=== PATIENT | male | born 1995 | race Caucasian/White ===

== ENCOUNTER 2018-06-11 15:28 | Emergency (ER) | payer SELFPAY ==
[2018-06-11 15:30] VITALS: BP 120/62; PULSE 83; RESP 17; TEMP 36.7; O2SAT 97; BMI 26.9
--- NOTE | 2018-06-11 15:58 | ED.RN ---
PT LEFT WITH BEING SEEN, ANGRY THAT SMALL CHILD WITH LACERATION TO HEAD SENT TO ROOM BEFORE HIM. ATTEMPTED TO EDUCATE ON TRIAGE PROCESS, PT STATED HE WAS HERE FOR WORK EXCUSE.
== END 2018-06-11 19:40 | disposition left against medical advice (07) ==
LOC: ED 19:30
PROVIDERS: Emergency Provider Emergency Medicine
DX: R69 Illness, unspecified (principal)

== ENCOUNTER 2021-10-05 10:18 | Emergency (ER) | payer MEDICAID, SELFPAY ==
[2021-10-05 10:18] VITALS: BP 160/96; PULSE 114; RESP 16; TEMP 36.3; O2SAT 95; BMI 31.6
--- NOTE | 2021-10-05 10:52 | ED.VIS.GI ---
HPI HPI - GI History of Present Illness Chief Complaint: Abd Pain Narrative Narrative: Patient who denies significant past medical history presents with abdominal cramping in his bilateral lower quadrants of his abdomen. He relates history that yesterday at heartburn. He has history of acid reflux in the family. That has resolved, and he states he woke up this morning and vomited twice without any blood in his emesis. Whenever he breathes then, he has cramping pain in his bilateral quadrants of his abdomen. He denies any dysuria or hematuria. No problems with bowel movements, no diarrhea. His last normal bowel movement was this morning. He denies any exacerbating or alleviating factors but states it feels more like a crampy pain in his abdomen. No fevers or chills. No other symptoms. PFSH PFSH Home Medications dicyclomine 20 mg PO TID PRN #20 tab 10/05/21 [Rx Last Taken Unknown] famotidine [Pepcid AC] 20 mg PO DAILY #14 tab 10/05/21 [Rx Last Taken Unknown] Allergy/AdvReac Type Severity Reaction Status Date / Time No Known Allergies Allergy Verified 10/05/21 10:20 Social History Smoking Status: Current every day smoker tobacco type: cigarettes ROS ROS ED ROS Narrative Constitutional: No fever, no chills. HEENT: No sore throat. No neck pain. No loss of vision. No rhinorrhea. Cardiovascular: No chest pain. No palpitations. No pedal edema. Respiratory: No cough, no shortness of breath. Abdominal: Bilateral lower quadrant abdominal cramping/abdominal pain. Positive nausea. Positive vomiting. Genitourinary: No dysuria. No hematuria. Musculoskeletal: No myalgias. No arthralgias. Neurologic: No headaches. No dizziness. No lightheadedness. Skin: No rash. No change in color. Psychiatric: No depression. No anxiety. EXAM Physical Exam Narrative Exam Narrative: Afebrile. Vital signs noted. HEENT: Normocephalic. Atraumatic. PERRL, EOMI. Neck soft and supple. No point tenderness or step off. Cardiovascular: Regular rate and rhythm. No murmurs, rubs, or gallops appreciated. Respiratory: No tachypnea. Lungs clear to auscultation bilaterally. Gastrointestinal: Abdomen soft, nontender, with normoactive bowel sounds. No rebound or guarding. No pain over McBurney's point. Neurological: Awake. Alert. Nonfocal, nonlateralizing. Skin: No rash. Normal color. No pallor. Musculoskeletal: No pedal edema. Full range of motion extremities. Const Vital Signs: 10/05/21 10:18 Temperature 97.3 F L Temperature Source Temporal Pulse Rate 114 H Respiratory Rate 16 Blood Pressure 160/96 H Blood Pressure Mean 117 Pulse Ox 95 Oxygen Delivery Method Room Air MDM MDM MDM Narrative Medical decision making narrative: I will obtain a CBC, CMP, and lipase. I do not feel he requires CT scanning, but I will obtain abdominal x-rays. He was given a bolus of normal saline and dicyclomine orally. He has normal white count 9.2, hemoglobin normal at 14.6. Platelet count normal 354. Electrolyte panel is grossly unremarkable except for chloride elevated at 110. LFTs are normal. Lipase slightly low at 65. Urinalysis shows no evidence of infection. Abdominal x-rays interpreted by myself showed nonspecific gas pattern but no evidence of obstruction. Upon repeat examination he feels improved after Bentyl. His abdomen remains soft. I feel he can be discharged safely home with follow-up. Return instructions to the emergency department were reviewed. He was given prescriptions for dicyclomine and for Pepcid. He was referred to a primary care provider. Disposition is discharged home in stable condition. Lab Data Attestation: I reviewed the patient's lab results. Labs: Laboratory Results - last 24 hr 10/05/21 10/05/21 10/05/21 11:05 11:05 11:30 WBC 9.2 RBC 4.68 Hgb 14.6 Hct 41.1 MCV 87.8 MCH 31.2 MCHC 35.5 RDW Std Deviation 42.3 RDW Coeff of Lisette 13.1 Plt Count 354 MPV 9.2 Immature Gran % (Auto) 0.500 Neut % (Auto) 57.1 Lymph % (Auto) 32.3 [place] % (Auto) 7.1 Eos % (Auto) 2.3 Baso % (Auto) 0.7 Absolute Neuts (auto) 5.2 Absolute Lymphs (auto) 2.96 Nucleated RBC % 0 Sodium 139 Potassium 4.3 Chloride 110 H Carbon Dioxide 26.0 Anion Gap 3 L BUN 11 Creatinine 0.84 Estim Creat Clear Calc 138.81 Est GFR (MDRD) Af Amer 141 Est GFR (MDRD) Non-Af 117 BUN/Creatinine Ratio 13.0 Glucose 95 Calcium 8.9 Total Bilirubin 0.50 AST 16 ALT 23 Alkaline Phosphatase 86 Total Protein 7.6 Albumin 3.7 Globulin 3.9 Albumin/Globulin Ratio 0.9 Lipase 65 L Urine Color Yellow Urine Clarity Clear Urine pH 8.0 Ur Specific [place] 1.015 Urine Protein Negative Urine Glucose (UA) Normal Urine Ketones Negative Urine Occult Blood Negative Urine Nitrite Negative Urine Bilirubin Negative Urine Urobilinogen Normal Ur Leukocyte Esterase Negative Urine RBC 0 SEEN Urine WBC 0 SEEN Ur Squamous Epith Cells 0 SEEN Urine Bacteria 0 SEEN Urine Mucus 0 SEEN Radiography Diagnostic Testing: Clinical Impression(s) from Imaging Studies Acute Abdomen Series 10/05/21 11:10 Discharge Plan Triage Chief Complaint: Abd Pain ED Provider: Andrew Granda Dx/Rx/DC Orders Clinical Impression: Heartburn, Abdominal cramping, Gastritis Instructions: ED Abdominal Pain Unkn Cause Male... Prescriptions: New famotidine [Pepcid AC] 20 mg tablet 20 mg PO DAILY Qty: 14 RF: 0 dicyclomine 20 mg tablet 20 mg PO TID PRN (Reason: abdominal pain) Qty: 20 RF: 0 Stand Alone Forms: ED Work / School Excuse Primary Care Provider: Care Physician,No Primary Referrals: Dalton Marquez DO [STAFF PHYSICIAN] - As soon as possible Care Physician,No Primary [Primary Care Provider] - Disposition Disposition: Home, Self Care Discharge Date/Time: 10/05/21 12:31
[2021-10-05] MEDS: Dicyclomine 10 MG Capsule 20 MG PO (11:07)
[2021-10-05] MEDS: 0.9% Normal Saline 1,000 ML 1000 ML IV (11:07)
--- NOTE | 2021-10-05 11:10 | RAD_ITS ---
History: Pain Acute abdominal series: Findings: AP supine and upright views of the abdomen demonstrate normal bowel gas pattern. No free air, organomegaly or pathologic calcification. Psoas muscle margins are well delineated. Osseous structures appear normal. Single frontal view of the chest shows the lungs to be clear. Heart is normal size. Mediastinum and hilar structures are normal. No pleural effusion. IMPRESSION: Normal acute abdominal series. at 1138 Reported and signed by: Alexandre Max MD Electronically Signed: Alexandre Max MD at 11:37 EDT , RAD/Acute Abdomen Inc Chest
[2021-10-05 11:12] LABS: Absolute Lymphocyte Count 2.96 X10^3/uL (0.83-4.51); Absolute Neutrophil Count 5.2 X10^3/uL (2.0-7.7); Basophil# 0.06 X10^3/uL; Basophil% 0.7 % (0-1); Eosinophil# 0.21 X10^3/uL; Eosinophils% 2.3 % (0-5); Hematocrit 41.1 % (40-54); Hemoglobin 14.6 g/dL (13.0-16.5); Lymphocyte # 2.96 X10^3/ul (0.83-4.51); Lymphocyte % 32.3 % (19-41); Mean Corp Hgb Conc 35.5 g/dL (32-36); Mean Corpuscular Hgb 31.2 pg (27.0-32.0); Mean Corpuscular Volume 87.8 fL (80-94); Mean Platelet Vol. 9.2 fl (6.2-12.0); Monocyte# 0.65 X10^3/uL; Monocyte% 7.1 % (0-10); NRBC Flagged by Analyzer 0 % (0-5); Neutrophil # 5.23 X10^3/uL (2.7-7.7); Neutrophil % 57.1 % (47-70); Platelet Count 354 K/mm3 (150-450); RBC Distribution Width CV 13.1 % (11.6-14.6); RBC Distribution Width SD 42.3 fl (35.1-43.9); Red Blood Count 4.68 M/mm3 (4.6-6.2); White Blood Count 9.2 K/mm3 (4.4-11.0)
[2021-10-05 11:28] LABS: ALB/GLOB Ratio 0.9 RATIO (0.9-2.4); AST(SGOT) 16 U/L (15-37); Alanine Aminotransfer ALT/SGPT 23 U/L (16-61); Albumin, Serum 3.7 g/dL (3.2-5.0); Alkaline Phosphatase 86 U/L (45-117); Anion Gap 3 (5-15); BUN 11 mg/dL (7-18); Calcium,Total 8.9 mg/dL (8.5-10.1); Chloride 110 mmol/L (98-107); Creatinine, Serum 0.84 mg/dL (0.70-1.30); EST Glomerular Filtration Rate 117 mL/min (>60); Est Glom Filt Rate - Afr Amer 141 mL/min (>60); Estimated Creatinine Clearance 138.81 ml/min; Globulin 3.9 g/dL (2.2-4.2); Glucose 95 mg/dL (74-106); Lipase 65 U/L (73-393); Potassium 4.3 mmol/L (3.5-5.1); Protein, Total 7.6 g/dL (6.4-8.2); Sodium Level 139 mmol/L (136-145)
[2021-10-05 11:35] LABS: Bacteria 0 SEEN /hpf (None Seen); Mucous, Urine 0 SEEN /hpf (<or=2+); Red Blood Cells-Urine 0 SEEN /hpf (0-5); Squamous Epithelial Cells - UA 0 SEEN /hpf (0-5); White Blood Cells 0 SEEN /hpf (0-5)
[2021-10-05 11:37] LABS: Color, Urine Yellow (Yellow); Glucose, Dipstick Normal (Normal); Ketone-Dipstick Negative (Negative); Leukocyte Esterase-Dipstick Negative /ul (Negative); Nitrite-Dipstick Negative (Negative); Occult Blood-Urine Negative /ul (Negative); Protein-Dipstick Negative (Negative); Specific Gravity, Urine 1.015 (1.002-1.030); Urine Bilirubin Dipstick Negative (Negative); Urine Clarity Clear (Clear); Urine Urobilinogen Normal (Normal)
[2021-10-05 12:30] VITALS: BP 142/90; PULSE 99; RESP 16; O2SAT 98
== END 2021-10-05 12:31 | disposition home or self-care (01) ==
PROVIDERS: Emergency Provider Emergency Medicine; Visit Provider Emergency Medicine
DX: K29.70 Gastritis, unspecified, without bleeding (principal); F17.210 Nicotine dependence, cigarettes, uncomplicated
CPT/HCPCS: 74022; 80053; 81001; 83690; 85025; 96360; 99284; J7030; A4216

== ENCOUNTER → 2022-04-11 | Outpatient (CLI) | payer MEDICAID, SELFPAY | END | disposition home or self-care (01) | LOC: LABSPEC 13:30 | PROVIDERS: PCP Nurse Practitioner Family; Referring Provider Nurse Practitioner Family; Visit Provider Nurse Practitioner Family | DX: Z20.822 Contact with and (suspected) exposure to COVID-19 (principal) | CPT/HCPCS: 87635; U0003; U0005 ==

== ENCOUNTER 2022-04-12 20:06 | Emergency (ER) | payer OTHER, MEDICAID, SELFPAY ==
[2022-04-12 20:09] VITALS: BP 137/84; PULSE 80; RESP 18; TEMP 36.4; O2SAT 99; BMI 28.9
--- NOTE | 2022-04-12 20:24 | EX.ED.UPPERE ---
HPI History of Present Illness Chief Complaint: Laceration Informant: patient Onset/Context/Timing Onset: Today Current Severity: Mild Maximum Severity: Mild Narrative Narrative: Patient presents with a laceration to the proximal phalanx of the left fourth finger. He cut it on some sheet metal at work today. He is right-hand dominant. He is unsure of his last tetanus update. [facility] Medical History GERD (gastroesophageal reflux disease) Headache, migraine Home Medications NK 04/12/22 [History Last Taken Unknown] Allergy/AdvReac Type Severity Reaction Status Date / Time No Known Allergies Allergy Verified 04/12/22 20:11 Family History Mother Anxiety Asthma Arthritis Depression Hypertension High cholesterol Thyroid disorder Sleep apnea Other Heart disease Surgical History H/O removal of cyst History of hand surgery Social History Smoking Status: Current every day smoker tobacco type: cigarettes alcohol intake: never substance use type: does not use what type of physical activity do you participate in: none ROS ROS ED Constitutional Constitutional ED: Denies chills or fever(s) Eyes Eyes: Denies change in vision ENT ENT ED: Denies rhinorrhea Cardiovascular Cardiovascular: Denies chest pain Respiratory/Chest Respiratory/Chest: Denies cough or dyspnea Gastrointestinal Gastrointestinal: Denies abdominal pain, nausea or vomiting Musculoskeletal Musculoskeletal: Reports extremity pain; Denies back pain Integumentary Reports other Details: Left fourth finger laceration ; Denies Abrasions or rash Neurologic Neurologic: Denies headache(s) or weakness Psychiatric Psychiatric: Denies anxiety or depression Allergic/Immunologic Allergic/Immunologic ED: Denies lip swelling or urticaria EXAM Physical Exam Const Vital Signs: 04/12/22 20:09 Temperature 97.6 F L Temperature Source Temporal Pulse Rate 80 Respiratory Rate 18 Blood Pressure 137/84 H Blood Pressure Mean 101 Pulse Ox 99 Oxygen Delivery Method Room Air Positive well nourished and well developed General Appearance ED: well developed HEENT Reports normocephalic and head/scalp atraumatic Eyes PERRL and EOMs intact bilaterally Neck supple Chest Wall inspection of chest normal and palpation of chest normal Resp normal respiratory effort and clear to auscultation bilaterally Cardio regular rate and regular rhythm GI normal to inspection, nondistended, normoactive bowel sounds Palpation: soft Extremity normal to inspection Extremity Narrative: 1 cm superficial laceration along the proximal phalanx of the left fourth finger. Full range of motion of the digit noted. Normal sensation and cap refill. Neuro oriented x3 and no sensory deficits noted Sensorium / Orientation: alert Motor Exam: strength 5/5 throughout Psych mental status grossly normal Skin no rashes or lesions noted MDM MDM MDM Narrative Medical decision making narrative: Left fourth finger laceration cleansed. Wound is quite superficial and does not gape with flexion and extension of his finger. Wound is sealed with Dermabond and dressing applied. Tetanus update is given. Patient will follow up with his [employer]. Discharge Plan Triage Chief Complaint: Laceration ED Provider: Makayla Clark Dx/Rx/DC Orders Clinical Impression: Finger laceration Instructions: ED Laceration, Hand: All Closures Prescriptions: No Action NK Stand Alone Forms: Work Status Form Primary Care Provider: Dalton Fregoso NP Referrals: [facility] [Group of Physicians] - 3-5 Days Dalton Fregoso NP, [employer] [Primary Care Provider] - Disposition Disposition: Home, Self Care
[2022-04-12] MEDS: Diphth,Pertuss(Acell),Tet Vac 0.5 ML Vial IM (20:47)
== END 2022-04-12 21:03 | disposition home or self-care (01) ==
LOC: ED 20:53
PROVIDERS: Emergency Provider Emergency Medicine; PCP Nurse Practitioner Family; Visit Provider Emergency Medicine
DX: S61.215A Laceration without foreign body of left ring finger without damage to nail, initial encounter (principal); F17.210 Nicotine dependence, cigarettes, uncomplicated; W26.8XXA Contact with other sharp object(s), not elsewhere classified, initial encounter; Y99.0 Civilian activity done for income or pay; Z23 Encounter for immunization
CPT/HCPCS: 12001; 90471; 90715; 99282

== ENCOUNTER → 2022-05-02 | Outpatient (CLI) | payer MEDICAID, SELFPAY ==
[2022-05-02 11:35] LABS: Bacteria 0 SEEN /hpf (None Seen); Mucous, Urine 0 SEEN /hpf (<or=2+); Red Blood Cells-Urine 0 SEEN /hpf (0-5); Squamous Epithelial Cells - UA 0 SEEN /hpf (0-5); White Blood Cells 0 SEEN /hpf (0-5)
[2022-05-02 12:54] LABS: Color, Urine Yellow (Yellow); Glucose, Dipstick Normal (Normal); Ketone-Dipstick Negative (Negative); Leukocyte Esterase-Dipstick Negative /ul (Negative); Nitrite-Dipstick Negative (Negative); Occult Blood-Urine Negative /ul (Negative); Protein-Dipstick Negative (Negative); Urine Bilirubin Dipstick Negative (Negative); Urine Clarity Clear (Clear); Urine Urobilinogen Normal (Normal)
[2022-05-02 12:57] LABS: Absolute Lymphocyte Count 4.42 X10^3/uL (0.83-4.51); Absolute Neutrophil Count 4.8 X10^3/uL (2.0-7.7); Basophil# 0.07 X10^3/uL; Basophil% 0.7 % (0-1); Eosinophil# 0.28 X10^3/uL; Eosinophils% 2.7 % (0-5); Hematocrit 44.1 % (40-54); Hemoglobin 15.5 g/dL (13.0-16.5); Lymphocyte # 4.42 X10^3/ul (0.83-4.51); Mean Corp Hgb Conc 35.1 g/dL (32-36); Mean Corpuscular Hgb 32.2 pg (27.0-32.0); Mean Corpuscular Volume 91.7 fL (80-94); Mean Platelet Vol. 9.6 fl (6.2-12.0); Monocyte# 0.71 X10^3/uL; Monocyte% 6.9 % (0-10); NRBC Flagged by Analyzer 0 % (0-5); Neutrophil # 4.76 X10^3/uL (2.7-7.7); Neutrophil % 46.4 % (47-70); Platelet Count 334 K/mm3 (150-450); RBC Distribution Width CV 12.8 % (11.6-14.6); RBC Distribution Width SD 43.6 fl (35.1-43.9); Red Blood Count 4.81 M/mm3 (4.6-6.2); White Blood Count 10.3 K/mm3 (4.4-11.0)
[2022-05-02 13:22] LABS: ALB/GLOB Ratio 1.1 RATIO (0.9-2.4); AST(SGOT) 17 U/L (15-37); Alanine Aminotransfer ALT/SGPT 32 U/L (16-61); Albumin, Serum 4.3 g/dL (3.2-5.0); Alkaline Phosphatase 102 U/L (45-117); Anion Gap 4 (5-15); BUN 18 mg/dL (7-18); BUN/Creat Ratio 21.2 RATIO (10-20); Calcium,Total 9.4 mg/dL (8.5-10.1); Chloride 105 mmol/L (98-107); Cholesterol 205 mg/dL (200); Creatinine, Serum 0.85 mg/dL (0.70-1.30); EST Glomerular Filtration Rate 116 mL/min (>60); Est Glom Filt Rate - Afr Amer 140 mL/min (>60); Glucose 83 mg/dL (74-106); High Density Lipoprotein 37 mg/dL; Potassium 4.5 mmol/L (3.5-5.1); Protein, Total 8.3 g/dL (6.4-8.2); Sodium Level 136 mmol/L (136-145); Thyroid Stim Hormone (TSH) 3.39 uIU/mL (0.358-3.74); Triglycerides 96 mg/dL; Very Low Density Lipoprotein 19 mg/dL (5-40)
[2022-05-02 13:49] LABS: HIV - WCH Non-Reactive (Nonreactive); Hepatitis B Surface Antigen Non-Reactive (Nonreactive); Hepatitis C Antibody Non-Reactive (Nonreactive)
[2022-05-02 15:19] LABS: Chlamydia Trachomatis by PCR Negative (Negative); Neisserai gonorrhoeae by PCR Negative (Negative); Probe Check PASS; Sample Adequacy Control PASS; Specimen Processing Control PASS
== END | disposition home or self-care (01) ==
LOC: BIMLAB 11:34
PROVIDERS: PCP Nurse Practitioner Family; Visit Provider Nurse Practitioner Family
DX: F19.10 Other psychoactive substance abuse, uncomplicated (principal); Z72.51 High risk heterosexual behavior
CPT/HCPCS: 36415; 80053; 80061; 81001; 84443; 85025; 86703; 86803; 87340; 87491; 87591

== ENCOUNTER 2023-05-29 13:38 | Emergency (ER) | payer SELFPAY ==
[2023-05-29 13:39] VITALS: BP 170/100; PULSE 81; RESP 20; TEMP 37.2; O2SAT 99; BMI 29.5
--- NOTE | 2023-05-29 13:54 | ED.VIS.DENTA ---
HPI History of Present Illness Chief Complaint: Dental Informant: patient Onset/Context/Timing Onset: Weeks (1-2) Context: Gradual Onset Timing: Continuous Quality: ache/throb Location: R mandib molar Current Severity: Severe Maximum Severity: Severe Worsened by: eating, drinking Associated Symptoms Assocated Symptom - Dental: Negative for fever, jaw swelling or face swelling Narrative Narrative: Patient with gradual worsening of right mandibular tooth ache that started a couple weeks ago, when it started crumbling and falling apart while eating. No fevers, chills, swelling but the pain is out of control and cannot find a dentist. [facility] Medical History GERD (gastroesophageal reflux disease) Headache, migraine High risk sexual behavior Polysubstance abuse Tinnitus of left ear Home Medications amoxicillin 500 mg tablet 500 mg PO TID #30 tabs 05/29/23 [Rx Last Taken Unknown] hydrocodone-acetaminophen 5-325mg 5mg-325mg 1 tab PO Q4H PRN PRN Pain 2 days #10 TABLETS 05/29/23 [Rx Last Taken Unknown] Allergy/AdvReac Type Severity Reaction Status Date / Time No Known Allergies Allergy Verified 05/02/22 11:03 Family History Mother Anxiety Asthma Arthritis Depression Hypertension High cholesterol Thyroid disorder Sleep apnea Other Heart disease Surgical History H/O removal of cyst History of hand surgery Social History Smoking Status: Current every day smoker tobacco type: cigarettes alcohol intake: never substance use type: does not use what type of physical activity do you participate in: none ROS ROS ED Constitutional Constitutional ED: Denies chills or fever(s) Eyes Eyes: Denies change in vision or double vision ENT ENT ED: Reports dental pain; Denies sinus pain or throat swelling Cardiovascular Cardiovascular: Denies chest pain or palpitations Respiratory/Chest Respiratory/Chest: Denies cough or dyspnea Integumentary Denies abscess or rash Neurologic Neurologic: Denies headache(s), paresthesias or weakness EXAM Physical Exam Const Vital Signs: 05/29/23 13:39 Temperature 99 F Temperature Source Temporal Pulse Rate 81 Respiratory Rate 20 H Blood Pressure 170/100 H Blood Pressure Mean 123 Pulse Ox 99 Oxygen Delivery Method Room Air Positive well nourished and well developed General Appearance ED: well developed and NAD HEENT HEENT Narrative: Large deficit right mandibular second molar that is severely decayed, there is no associated discharge, bleeding, or gingival abscess. No trismus. No tongue elevation. Buccal soft tissue mucosa normal. No signs of external swelling/abscess. No lymphadenopathy. Face and Sinus: sinuses nontender Throat: posterior oropharynx normal Eyes PERRL and EOMs intact bilaterally Neck no lymphadenopathy and supple Resp normal respiratory effort Neuro oriented x3 and CN's II-XII intact bilaterally Sensorium / Orientation: alert Gait (Neuro): normal gait Psych mental status grossly normal and thought process normal Skin no rashes or lesions noted and no wounds MDM MDM MDM Narrative Medical decision making narrative: Patient with a history of polysubstance abuse, denies using anything now, OARRS report reviewed and is negative for the past 2 years. Given her short course of [place] since [id number] medication not helping, and placed on amoxicillin given dental resource list. Discharge Plan Triage Chief Complaint: Dental ED Provider: Cristóbal Porter Dx/Rx/DC Orders Clinical Impression: Pain due to dental caries Instructions: ED Dental Cavity Prescriptions: New hydrocodone-acetaminophen [hydrocodone-acetaminophen] 5-325 mg tablet 1 tab PO Q4H PRN PRN (Reason: Pain) 2 Days Qty: 10 0RF amoxicillin 500 mg tablet 500 mg PO TID Qty: 30 0RF Primary Care Provider: Dalton Fregoso NP Referrals: Dalton Fregoso [employer], [employer] [Primary Care Provider] - Dentist,Your [STAFF PHYSICIAN] - As soon as possible (see attached resource list if needed) Disposition Disposition: Home, Self Care
[2023-05-29] MEDS: Ibuprofen 600 MG Tablet PO (14:14)
[2023-05-29] MEDS: HYDROcodone Bitartrate/Apap 5/325 Tablet PO (14:15)
[2023-05-29] MEDS: AMOXICILLIN 500 MG CAPSULE PO (14:15)
== END 2023-05-29 14:17 | disposition home or self-care (01) ==
LOC: ED 14:03
PROVIDERS: Emergency Provider Emergency Medicine; PCP Nurse Practitioner Family; Referring Provider Emergency Medicine; Visit Provider Emergency Medicine
DX: K02.9 Dental caries, unspecified (principal); F17.210 Nicotine dependence, cigarettes, uncomplicated
CPT/HCPCS: 99283

== ENCOUNTER 2023-06-29 18:04 | Emergency (ER) | payer MEDICAID, SELFPAY ==
[2023-06-29 18:05] VITALS: BP 146/99; PULSE 116; RESP 16; TEMP 36.6; O2SAT 100
--- NOTE | 2023-06-29 19:54 | ED.RN ---
Pt name called for room, not in department.
--- OUTSIDE RECORDS SUMMARY | 2023-06-29 20:10 | XMS RPT_ITS | CCD ---
Author Name Unknown Address [address] [place] [address] Organization [facility] Care Team Providers Care Application Project Leader Name Role Phone Unavailable Primary Care Provider ASTER Warren Referring Unavailable ASTER MATHUR Consulting Unavailable ADAM RICHARDSON DO Attending Unavailable ADAM RICHARDSON DO Primary Care Unavailable ADAM RICHARDSON DO Admitting Unavailable PROVIDER, UNKNOWN Consulting Unavailable Unavailable Primary Care Provider Venancio DE DIOS MD, DR HARRISON Attending YENIFER Warren Primary Care Unavailable Medications Completed/Discontinued Medications Medication Drug Class(es) Dates Sig (Normalized) Sig (Original) azithromycin 250 mg oral tablet (1 source) Macrolide Antimicrobial Start: 09-19-2022 take 1 tablet by mouth once daily azithromycin (ZITHROMAX) 250 mg tablet Take 250 mg by mouth once daily. 0 09/19/2022 Active Problems Problem Classification Problem Date Documented Da te Episodic/Chronic Inflammation; infection of eye (except that caused by tuberculosis or sexually transmitteddisease) (1 source) Hordeolum externum of lower eyelid of right eye; Translations: [Hordeolum externum right lower eyelid] Episodic Results Test Name Value Interpretation Reference Range Facil ity Vital Signs Date Time Vital Sign Value Performing Clinician Marleni simmons 10-03-2022 15:14-0400 Body temperature 98.2 [degF] Courtney Harris APRN.[employer] Work Phone: [facility] 10-03-2022 15:14-0400 Body weight 86.27 kg Courtney Harris HI LO DRIVER.[employer] Work Phone: [facility] 10-03-2022 15:14-0400 Diastolic blood pressure 76 mm[Hg] Courtney Praisler-Wood HI LO DRIVER.[employer] Work Phone: [facility] 10-03-2022 15:14-0400 Heart rate 67 /min Courtney Praisler-Wood HI LO DRIVER.[employer] Work Phone: [facility] 10-03-2022 15:14-0400 Respiratory rate 18 /min Courtney Praisler-Wood HI LO DRIVER.[employer] Work Phone: [facility] 10-03-2022 15:14-0400 SaO2% (BldA) [Mass fraction] 97 % Courtney Praisler-Wood HI LO DRIVER.[employer] Work Phone: [facility] 10-03-2022 15:14-0400 Systolic blood pressure 128 mm[Hg] Courtney Praisler-Wood HI LO DRIVER.[employer] Work Phone: [facility] Encounters Encounter Date Encounter Type Care Provider Facility Start: 06-07-2023 End: 06-07-2023 Emergency department patient visit DR HUNTER DE DIOS MD Facility: Start: 10-03-2022 End: 10-03-2022 ambulatory Facility:[facility] Start: 10-03-2022 End: 10-03-2022 Patient encounter procedure Courtney Praisler-Wood HI LO DRIVER.[employer] Work Phone: [facility] Procedures Date Procedure Procedure Detail Performing Clinician Start: 05-18-2021 Adult depression scr eening assessment No (Hist) Plan of Treatment Date Care Activity Detail Author Start: 02-23-2023 Influenza vaccination INFLUENZA (Sea son Ended) [facility] Start: 06-25-2022 DEPRESSION ASSESSMENT DEPRESSION ASS ESSMENT [facility] Start: 05-18-2022 Adult depression screening assessment DEPRESSION SCREENING [facility] Start: 02-23-2022 Influenza vaccination INFLUENZA (Sea son Ended) [facility] Start: 01-23-2015 Urine microalbumin profile DTAP,TDAP,TD (1 - Tdap) [facility] Start: 01-23-2014 HEPATITIS C SCREENING HEPATITIS C SC BETSEY [facility] Start: 01-23-2014 HIV SCREENING HIV SCREENING [facility] Start: 01-23-2010 PEDS TO ADULT TRANSI TION ANNUAL ASSESSMENT PEDS TO ADULT TRANSITION ANNUAL ASSESSMENT [facility] Start: 2008 PEDS TO ADULT TRANSI TION INITIAL DISCUSSION PEDS TO ADULT TRANSITION INITIAL DISCUSSION [facility] Start: 01-23-2007 HPV VACCINE (1 - Mal e 2-dose series) HPV VACCINE (1 - Male 2-dose series) [facility] Start: 01-23-2002 PNEUMOCOCCAL (1 - PCV) PNEUMOCOCCAL (1 - PCV) [facility] Start: 01-23-2001 COVID-19 VACCINE (1) COVID-19 VACCIN E (1) [facility] Start: 1996 COVID-19 VACCINE (#1) COVID-19 VACCI NE (#1) [facility] Start: 1996 HEPATITIS B (1 of 3 - 3-dose series) HEPATITIS B (1 of 3 - 3-dose series) [facility] Payers Date Payer Category Payer Self-pay 2022 Medicaid [facility] [id number] 2022-Present [phone] [address] [place] [address] Medicaid [id number] 2022 Unknown [id number] 2021 Medicaid [facility] MED[facility] [id number] 2021-Present [phone] [address] [place] [address] Medicaid [id number] 1996 Unknown [id number] 1996 Unknown [id number] Social History Date Type Detail Facility Start: 06-27-2021 End: 10-03-2022 Tobacco smoking status NHIS Smokes tobacco daily [facility] Work Phone: Start: 06-27-2021 End: 10-03-2022 Cigarettes smoked current (pack per day) - Reported 0.5 [facility] Start: 06-27-2021 End: 10-03-2022 Tobacco use and exposure Smokeless tobacco non-user [facility] Work Phone: Start: 05-18-2021 History SDOH Alcohol Frequency 2 [facility] Start: 05-18-2021 History SDOH Alcohol Std Drinks 98 [facility] Start: 05-18-2021 History SDOH Alcohol Binge 1 [facility] Start: 05-18-2021 History SDOH Social Connections Phone 5 [facility] Start: 05-18-2021 History SDOH Social Connections Living 7 [facility] Start: 05-18-2021 History SDOH Physica l Activity MPS 15 [facility] Start: 05-18-2021 History SDOH Financial 3 [facility] Start: 1996 Sex Assigned At Not on file [facility] History of tobacco use Cigarette Smoker [facility] Progress note 10-03-2022 Note Date & Type Note Facility 10-03-2022 Note HNO ID: [id number] Author: Courtney Harirs APRN.[employer] Service: ? Author Type: Nurse Practitioner Type: Progress Notes Filed: 10/03/2022 3:46 PM Note Text: Subjective Eye Problem Associated symptoms include congestion and coughing. Pertinent negatives include no chills, fever, rash or sore throat. Parag Whyte is a 27 year old male who presents with right lower eyelid redness, itching and burning. This started yesterday. He has not had any pain in the eye itself. He has had some recent nasal congestion. He has not used any medication for the eye. He denies visual difficulty. Review of Systems Constitutional: Negative for chills and fever. HENT: Positive for congestion. Negative for ear pain and sore throat. Eyes: Positive for pain (lower eyelid (right)). Negative for blurred vision, double vision, photophobia, discharge and redness. Respiratory: Positive for cough. Skin: Positive for itching. Negative for rash. BP 128/76 Pulse 67 Temp 36.8 ?C (98.2 ?F) (Tympanic) Resp 18 Wt 86.3 kg (190 lb 3.2 oz) SpO2 97% No past medical history on file. PAST SURGICAL HISTORY Procedure Laterality Date HAND SURGERY HX Right Had secondary to MRSA MYRINGOTOMY Bilateral ALLERGIES Patient has no known allergies. MEDICATIONS hydrocortisone 1 % cream Apply 1 application topically to affected area(s) once daily, as directed. mupirocin (BACTROBAN) 2 % ointment Apply a small amount to affected area three times a day. azithromycin (ZITHROMAX) 250 mg tablet Take 250 mg by mouth once daily. (Patient not taking: Reported on 10/03/2022) Benzonatate 200 mg capsule Take 1 capsule by mouth three times daily as needed. Pseudoephedrine HCl (SUDAFED 12 HOUR) 120 mg TbER Take 1 tablet by mouth twice daily. cromolyn (NASALCROM) 5.2 mg/spray (4 %) nasal spray Use 1 Niland in the nose four times daily. ibuprofen (MOTRIN) 600 mg tablet Take 1 tablet by mouth every 6 hours as needed for pain. FAMILY HISTORY Problem Relation Age of Onset COPD Mother Asthma Mother Hypertension Mother Hyperlipidemia Mother Heart disease Sister Social History Tobacco Use Smoking status: Every Day Packs/day: 0.50 Types: Cigarettes Smokeless tobacco: Never Objective Physical Exam Vitals and nursing note reviewed. Constitutional: Appearance: Normal appearance. Eyes: General: Right eye: Hordeolum present. No discharge. Extraocular Movements: Right eye: Normal extraocular motion. Left eye: Normal extraocular motion. Conjunctiva/sclera: Right eye: Right conjunctiva is not injected. No chemosis, exudate or hemorrhage. Left eye: Left conjunctiva is not injected. Cardiovascular: Rate and Rhythm: Normal rate. Pulmonary: Effort: Pulmonary effort is normal. Skin: General: Skin is warm and dry. Findings: Erythema present. No rash. Neurological: Mental Status: He is alert. ASSESSMENT/PLAN: 1. Hordeolum externum of right lower eyelid - ICD9: 373.11, ICD10: H00.012 - no medication is needed. Warm compresses to eyelid 2-3 times daily. - Follow-up with your PCP or eye doctor in 3-5 days if symptoms have not improved or sooner if symptoms worsen - Discussed red flags and need for immediate medical evaluation if any occur. - Discussed supportive care treatment with fluids, rest and analgesia. - Discussed expected course of illness [facility] 10-03-2022 Patient Instructions Note Date & Type Note Facility 10-03-2022 Instructions Courtney Harris APRN.CNP - 10/03/2022 3:46 PM EDT ASSESSMENT/PLAN: 1. Hordeolum externum of right lower eyelid - ICD9: 373.11, ICD10: H00.012 - no medication is needed. Warm compresses to eyelid 2-3 times daily. - Follow-up with your PCP or eye doctor in 3-5 days if symptoms have not improved or sooner if symptoms worsen - Discussed red flags and need for immediate medical evaluation if any occur. - Discussed supportive care treatment with fluids, rest and analgesia. - Discussed expected course of illness Courtney Harris APRN.CNP STY: You have a sty, an infection of one of the tiny glands located on the eyelid. A sty takes several days to develop. It usually forms a small abscess along the edge of the eyelid. The pus that forms in the infected gland must drain for the sty to heal. A sty is treated by applying warm moist compresses to the eye for 15 minutes three times daily until it drains and the swelling and redness are gone. Some sties require surgical drainage. Antibiotic eye drops may be needed if the infection spreads to other areas of the eye. Please see your doctor if your eye is not better after 3 days of treatment. Return immediately of see your doctor for any fever or loss of vision. documented in this encounter [facility] History of Present illness Narrative 10-03-2022 Courtney Harris APRN.CNP - 10/03/2022 3:40 PM EDT Note Date & Type Note Facility 10-03-2022 History of Presen t illness Narrative Images from the original note were not included. Subjective Eye Problem Associated symptoms include congestion and coughing. Pertinent negatives include no chills, fever, rash or sore throat. Parag Whyte is a 27 year old male who presents with right lower eyelid redness, itching and burning. This started yesterday. He has not had any pain in the eye itself. He has had some recent nasal congestion. He has not used any medication for the eye. He denies visual difficulty. Review of Systems Constitutional: Negative for chills and fever. HENT: Positive for congestion. Negative for ear pain and sore throat. Eyes: Positive for pain (lower eyelid (right)). Negative for blurred vision, double vision, photophobia, discharge and redness. Respiratory: Positive for cough. Skin: Positive for itching. Negative for rash. BP 128/76 Pulse 67 Temp 36.8 C (98.2 F) (Tympanic) Resp 18 Wt 86.3 kg (190 lb 3.2 oz) SpO2 97% No past medical history on file. PAST SURGICAL HISTORY Procedure Laterality Date HAND SURGERY HX Right Had secondary to MRSA MYRINGOTOMY Bilateral ALLERGIES Patient has no known allergies. MEDICATIONS hydrocortisone 1 % cream Apply 1 application topically to affected area(s) once daily, as directed. mupirocin (BACTROBAN) 2 % ointment Apply a small amount to affected area three times a day. azithromycin (ZITHROMAX) 250 mg tablet Take 250 mg by mouth once daily. (Patient not taking: Reported on 10/03/2022) Benzonatate 200 mg capsule Take 1 capsule by mouth three times daily as needed. Pseudoephedrine HCl (SUDAFED 12 HOUR) 120 mg TbER Take 1 tablet by mouth twice daily. cromolyn (NASALCROM) 5.2 mg/spray (4 %) nasal spray Use 1 Niland in the nose four times daily. ibuprofen (MOTRIN) 600 mg tablet Take 1 tablet by mouth every 6 hours as needed for pain. FAMILY HISTORY Problem Relation Age of Onset COPD Mother Asthma Mother Hypertension Mother Hyperlipidemia Mother Heart disease Sister Social History Tobacco Use Smoking status: Every Day Packs/day: 0.50 Types: Cigarettes Smokeless tobacco: Never Objective Physical Exam Vitals and nursing note reviewed. Constitutional: Appearance: Normal appearance. Eyes: General: Right eye: Hordeolum present. No discharge. Extraocular Movements: Right eye: Normal extraocular motion. Left eye: Normal extraocular motion. Conjunctiva/sclera: Right eye: Right conjunctiva is not injected. No chemosis, exudate or hemorrhage. Left eye: Left conjunctiva is not injected. Cardiovascular: Rate and Rhythm: Normal rate. Pulmonary: Effort: Pulmonary effort is normal. Skin: General: Skin is warm and dry. Findings: Erythema present. No rash. Neurological: Mental Status: He is alert. ASSESSMENT/PLAN: 1. Hordeolum externum of right lower eyelid - ICD9: 373.11, ICD10: H00.012 - no medication is needed. Warm compresses to eyelid 2-3 times daily. - Follow-up with your PCP or eye doctor in 3-5 days if symptoms have not improved or sooner if symptoms worsen - Discussed red flags and need for immediate medical evaluation if any occur. - Discussed supportive care treatment with fluids, rest and analgesia. - Discussed expected course of illness Courtney Harris APRN.[employer] documented in this encounter [facility] Note 10-04-2021 Telephone Encounter - Stephanie Arora LPN - 10/04/2021 2:00 PM EDT Note Date & Type Note Facility 10-04-2021 Miscellaneous Notes Patient calling has no PCP wants to get appt to be seen. Patient began yesterday vomiting, stomach hurts, chest hurts with deep breath, bowels moving but not having diarrhea. Denies fever. Advised to go to ill urgent care for evaluation. documented in this encounter [facility] Progress note 06-27-2021 Note Date & Type Note Facility 06-27-2021 Note HNO ID: [id number] Author: Ysabel Allen, DO Service: ? Author Type: Physician Type: Progress Notes Filed: 06/27/2021 11:40 AM Note Text: Telemedicine Evaluation for COVID-19 Infection MyChart video visit was used for evaluation of this patient. Location of patient: [place] JUAN Whyte is a 26 year old male who presents with 7 days of symptoms that are stable. Pt indicates his girlfriend tested positive for covid 3-4 days ago. States has to get tested for work purposes. Pt works factory, makes car parts. Patient is new to me. Symptoms include: Fever (?100.4F): No or Chills: No Cough: Yes Shortness of breath: No or Difficulty breathing: No Fatigue: No Muscle aches: Yes Headache: No New loss of smell or taste: Yes lost them on 06/20, it did come back the next day. Sore throat: Yes, getting better Nasal congestion: Yes or Rhinorrhea: No Nausea: No or Vomiting: No Diarrhea: No OTC meds/remedies that patient has tried: OTC cough syrup and OTC cold medicine. High risk category assessment No high risk factors Exposures: Sick contacts? Yes Family or close contacts with confirmed/probable COVID-19 in last 14 days? Yes He has no history on file for tobacco use. OBJECTIVE VIDEO EXAM (if available) GENERAL: well appearing, alert, in no acute distress HEENT: no conjunctival injection, pupils equal, moist mucous membranes, oropharynx clear without erythema, sinuses non-tender to self-palpation and no cervical adenopathy by self-palpation PULMONARY: breathing comfortably on room air , no coughing noted and no wheezing noted ASSESSMENT/PLAN No diagnosis found. ASSESSMENT/PLAN: 1. Encounter by telehealth for suspected COVID-19 - ICD9: V01.79, ICD10: Z20.822 (primary diagnosis) - COVID WITH FLUA+B, ROUTINE 2. Exposure to COVID-19 virus - ICD9: V01.79, ICD10: Z20.822 3. Tobacco abuse - ICD9: 305.1, ICD10: Z72.0 - Cessation encouraged. - Counseling was given focusing on the harmful effects of this addiction especially given the patient's medical condition(s) which will be worsened because of the chemicals in tobacco. - Counseling was given 3-4 minutes. 4. Cough - ICD9: 786.2, ICD10: R05.9 May use Mucinex or [id number] cough and cold medicine Ysabel Allen, - Meets symptom-based criteria for testing and is low risk. - Instructed to schedule testing via MyChart or appointment center - Instructed to isolate pending test results - Discussed symptom monitoring and supportive care - Red flag symptoms requiring follow up discussed This patient encounter involved the screening or treatment of novel coronavirus infection (COVID-19). COVID-19 (Novel Coronavirus): - You are being tested for COVID-19. You will be notified within 2 days if your test comes back positive. - While awaiting these results, please refer to the following recommendations from the CDC regarding isolation precautions: Steps to Follow: Isolation: You should follow the prevention steps below until a healthcare provider says you can return to your normal activities. Stay home except to get medical care - People who are mildly ill with COVID-19 are able to isolate at home during their illness. - You should restrict activities outside your home, except for getting medical care. - Do not go to work, school, or public areas. Avoid using public transportation, ride-sharing, taxis, or public air travel. Separate yourself from other people and animals in your home People: As much as possible, you should stay in a specific room and away from other people in your home. Also, you should use a separate bathroom, if available. Animals: You should restrict contact with pets and other animals while you are sick with COVID-19, just like you would around other people. Although there have not been reports of pets or other animals becoming sick with COVID-19, it is still recommended that people sick with COVID-19 limit contact with animals until more information is known about the virus. When possible, have another member of your household care for your animals while you are sick. If you are sick with COVID-19, avoid contact with your pet, including petting, snuggling, being kissed or licked, and sharing food. If you must care for your pet or be around animals while you are sick, wash your hands before and after you interact with pets and wear a facemask. See COVID-19 and Animals for more information. Call ahead before visiting your doctor If you have a medical appointment, call the healthcare provider and tell them that you have or may have COVID-19. This will help the healthcare provider's office take steps to keep other people from getting infected or exposed. Personal Protection: You should wear a facemask when you are around other people (e.g., sharing a room or vehicle) or pets. If you are not able to wear a facemask (for example, because it causes t (more content not included)... [facility] Evaluation note Note Date & Type Note Facility documented in this encounter [facility] Summary Purpose Family History No Family History Records FoundNo Family History Records FoundNo Family History Records FoundNo Family History Records Found Advance Directives No Advanced Directives Records FoundNo Advanced Directives Records FoundNo Advanced Directives Records FoundNo Advanced Directives Records Found Additional Source Comments (unrecognized sect ion and content) No Status Records FoundNo Status Records FoundNo Status Records FoundNo Status Records Found INFORMATION SOURCE (unrecogn ized section and content) DATE CREATED AUTHOR AUTHOR'S ORGANIZ ATION 09/21/2022 [facility] DATE CREATED AUTHOR AUTHOR'S ORGANIZ ATION 10/08/2022 [facility] DATE CREATED AUTHOR AUTHOR'S ORGANIZ ATION 06/12/2023 [facility] ([place]) Source Comments (unrecognize d section and content) In the event this informatio n is protected by the Federal Confidentiality of Alcohol and Drug Abuse Patient Records regulations: The Federal rules restrict any use of the information to criminally investigate or prosecute any alcohol or drug abuse patient[facility] the event this information is protected by the Federal Confidentiality of Alcohol and Drug Abuse Patient Records regulations: The Federal rules restrict any use of the information to criminally investigate or prosecute any alcohol or drug abuse patient.[facility] Reason for Visit (unrecogniz ed section and content) Reason Comments Eye Problem Pt reported (RT) ey irritation, x1 day visual screen (RT) eye 20/15. FOR RECORDS PERTAINING TO PATIENTS WHO ARE OR HAVE BEEN ENROLLED IN A CHEMICAL DEPENDENCY/SUBSTANCEABUSE PROGRAM, SOME INFORMATION MAY BE OMITTED. This clinical summary was aggregated from multiple sources. Caution should be exercised in using it in the provision of clinical care. This summary normalizes information from multiple sources, and as a consequence, information in this document may materially change the coding, format and clinical context of patient data. In addition, data may be omitted in some cases. CLINICAL DECISIONS SHOULD BE BASED ON THE PRIMARY CLINICAL RECORDS. [facility] [email or web address] [facility]. provides no warranty or guarantee of the accuracy or completeness of information in this document.
== END 2023-06-29 19:45 | disposition left against medical advice (07) ==
LOC: ED 20:08
PROVIDERS: PCP Nurse Practitioner Family
DX: T14.90XA Injury, unspecified, initial encounter (principal)

== ENCOUNTER 2024-11-24 13:31 | Emergency (ER) | payer MEDICAID, SELFPAY ==
[2024-11-24 13:32] VITALS: BP 145/110; PULSE 98; RESP 19; TEMP 36.7; O2SAT 98; BMI 29.2
--- NOTE | 2024-11-24 13:50 | EX.ED.DYSGE1 ---
HPI History of Present Illness Chief Complaint: Lower Extremity Injury Detail of Chief Complaint: Right knee cellulitis. Left thumb pain and swelling. Informant: patient Onset/Context/Timing Onset: Today and Yesterday Context: Gradual Onset Timing: Continuous Maximum Severity: Moderate Narrative Narrative: 29-year-old male with history of polysubstance abuse. Prior IV drug abuse use in the last 6 months. Complaining of right knee redness of the skin pustules and mild discomfort. He is able to flex and extend the knee. Also pain and swelling of his left thumb over the distal phalanx pad. Prior history of MRSA infection. Denies systemic symptoms. Denies recent fever. Prior similar symptoms: Yes Recent Illness/Hospitalization: No PFSH [facility] Medical History Tinnitus of left ear Polysubstance abuse High risk sexual behavior GERD (gastroesophageal reflux disease) Headache, migraine Home Medications ?Medication ?Instructions ?Recorded ?Last Taken ?Type clindamycin HCl 300 mg capsule 300 mg PO Q6H 10 days #40 CAPSULES 11/24/24 Unknown Rx (Cleocin HCl) hydroxyzine pamoate 50 mg capsule 50 mg PO DAILY 11/24/24 11/24/24 History omeprazole 40 mg capsule,delayed 40 mg PO DAILY 11/24/24 11/23/24 History release prazosin 1 mg capsule 1 mg PO QHS 11/24/24 11/17/24 History trazodone 50 mg tablet 50 mg PO QHS 11/24/24 11/17/24 History Allergy/AdvReac Type Severity Reaction Status Date / Time No Known Allergies Allergy Verified 06/29/23 18:05 Family History Mother Anxiety Asthma Arthritis Depression Hypertension High cholesterol Thyroid disorder Sleep apnea Other Heart disease Surgical History History of hand surgery H/O removal of cyst Social History Smoking Status: Current every day smoker tobacco type: cigarettes alcohol intake: never substance use type: does not use what type of physical activity do you participate in: none ROS ROS ED ROS Narrative Denies recent illness. Redness of the skin on top of his right knee. Pain and swelling left thumb. Constitutional Constitutional ED: Denies fever(s) Eyes Eyes: Denies blurry vision ENT ENT ED: Denies ear pain Cardiovascular Cardiovascular: Denies chest pain Respiratory/Chest Respiratory/Chest: Denies cough or dyspnea Gastrointestinal Gastrointestinal: Denies abdominal pain Genitourinary Genitourinary ED: Denies dysuria or hematuria Musculoskeletal Musculoskeletal: Denies arthralgias Integumentary Reports rash; Denies abscess or Abrasions Neurologic Neurologic: Denies headache(s) Psychiatric Psychiatric: Denies anxiety Endocrine Endocrinology: Denies cold intolerance Hematologic/Lymphatic Hematologic/Lymphatic: Reports none Allergic/Immunologic Allergic/Immunologic ED: Denies mouth swelling, tongue swelling or urticaria EXAM Physical Exam Narrative Exam Narrative: Well-appearing 29-year-old male. Vital signs stable afebrile. Significant other present in the room. Patient is in no distress. H EENT exam pupils round react light. Moist mucous membranes. Poor dentition. Dental decay. Neck nontender no lymphadenopathy. Lungs clear to auscultation bilaterally. Heart regular rhythm rate about 90 no murmur. Chest wall ribs nontender. Abdomen soft nontender. Moving all 4 extremities. His right knee there is mild cellulitis on top of the knee. He has full flexion extension of the knee. There is no signs of septic joint. He does have a pustule on top of his knee. This appears to be a superficial cellulitis. There is no lymphangitic streaking. There is no inguinal lymphadenopathy on the right. He has normal flexion extension of the right hip, knee ankle and foot. There is no calf tenderness or swelling. He has normal dorsi plantarflexion. The left thumb is painful and swollen there may be a foreign body in the soft tissue on the palmar aspect of the distal phalanx is swollen and tender consistent with an infection also. There is no lymphangitic streaking or axillary lymphadenopathy on either side. Neurologically he is awake and alert. Answering questions following commands. Const Vital Signs: 11/24/24 13:32 11/24/24 15:48 Temperature 98.1 F 98.3 F Temperature Source Oral Oral Pulse Rate 98 84 Respiratory Rate 19 H 16 Blood Pressure 145/110 H 157/70 H Blood Pressure Mean 121 99 Pulse Ox 98 99 Oxygen Delivery Method Room Air Room Air Positive well nourished and well developed; Negative for obese, cachectic, contractures or unkempt General Appearance ED: well developed and NAD; Negative for unkempt, cachectic, contractures, cyanotic, diaphoretic or pallor Nutritional Appearance: Negative for cachectic or obese HEENT Reports moist mucous membranes Eyes EOMs intact bilaterally Neck no lymphadenopathy, supple and no JVD Chest Wall inspection of chest normal and palpation of chest normal Resp normal respiratory effort and clear to auscultation bilaterally Cardio regular rate, regular rhythm, S2 normal heart sound and no murmurs GI normal to inspection, nondistended, normoactive bowel sounds, non-tender, non-distended and no masses Auscultation: normoactive bowel sounds Palpation: soft; Negative for tender or guarding Back/Spine no CVA tenderness General Back: Negative for CVA tenderness Cervical Spine: Negative for cervical spine tenderness Thoracic Spine / Upper Back: Negative for thoracic spinal tenderness or paraspinal muscle tenderness Lumbar Spine / Lower Back: Negative for lumbar spinal tenderness Extremity Negative for normal to inspection Extremity Narrative: Left thumb swollen and tender possible foreign body in the soft tissue of the distal phalanx palmar aspect. Also consistent with a soft tissue infection. Normal range of motion. Neurovascular intact left hand. The other digits left hand are unremarkable. Right knee superficial cellulitis. Pustules. Does not look like a septic joint. He has normal flexion extension without pain. There is no effusion. General Extremety ED: Yes tenderness Neuro oriented x3 and CN's II-XII intact bilaterally Sensorium / Orientation: alert; Negative for orientation impaired, lethargic or stuporous Motor Exam: strength 5/5 throughout Psych mental status grossly normal Appearance: Negative for unkempt Attitude: No agitated Mood & Affect: Negative for depressed, anxious or tearful Skin No no rashes or lesions noted and no wounds Skin Narrative: Right knee superficial cellulitis and pustules. General Skin Exam: Negative for jaundice or pallor Rashes: rashes noted MDM MDM MDM Narrative Medical decision making narrative: 29-year-old male history of polysubstance abuse with IV drug abuse. With superficial cellulitis and pustules on his right kneecap. I do not Septic joint. He also has an infection on his left distal thumb soft tissue which may be a foreign body.Screening labs will be obtained. She will need to be locally anesthetized with digital block and I&D. History & Record Review Discussion w/independent historian: Patient Additional record(s) reviewed:: Prior inpatient record, Prior outpatient record, Prior ED visit and Prior labs Lab Data Attestation: I reviewed the patient's lab results. Lab results narrative: CBC shows white 11.8. H&H 14 and 38. Platelets 344. Sed rate is only 13. His electrolytes show sodium 136. Gap 12. Normal BUN of 15 creatinine 0.8. Glucose 100. Labs are unremarkable. Labs: Laboratory Results - last 24 hr 11/24/24 14:06 WBC 11.8 H RBC 4.38 L Hgb 14.0 Hct 38.4 L MCV 87.7 MCH 32.0 MCHC 36.5 H RDW Std Deviation 43.2 RDW Coeff of Lisette 13.3 Plt Count 344 MPV 9.1 Immature Gran % (Auto) 0.500 Neut % (Auto) 62.6 Lymph % (Auto) 18.6 L [place] % (Auto) 13.1 H Eos % (Auto) 4.5 Baso % (Auto) 0.7 Absolute Neuts (auto) 7.4 Absolute Lymphs (auto) 2.18 Nucleated RBC % 0 Platelet Estimate A RBC Morphology NORM C+C ESR 13 Sodium 136 Potassium 3.6 Chloride 101 Carbon Dioxide 22.8 Anion Gap 12 BUN 15 Creatinine 0.87 Estim Creat Clear Calc 140.21 Est GFR (MDRD) Non-Af 121 BUN/Creatinine Ratio 17.0 Glucose 100 H Calcium 9.3 Radiography Diagnostic Testing: Clinical Impression(s) from Imaging Studies Finger X-Ray 11/24/24 14:14 IMPRESSION: Mild soft tissue edema about the 1st phalanx without radiographic foreign body. No acute osseous fracture or dislocations. Reading Location: [facility] Left thumb x-ray 3 views interpreted myself radiologist shows soft tissue swelling. No fracture. No dislocation. No obvious foreign body. Procedures Other Procedures Procedure(s): Left thumb infection on the distal phalanx palmar aspect. Digital block with lidocaine. Once proper anesthetic was obtained I made about half inch incision perpendicular to the long axis of the thumb. Was able to express a very small amount of blood and pus. Like less than 2 cc. I could not find or see any foreign body. I probed the area and could not feel any foreign body. Area was cleaned and irrigated. It will be dressed. Patient was instructed on wound care of both the knee and the left thumb. Discharge Plan Triage Chief Complaint: Lower Extremity Injury ED Provider: Juve Cordoba Dx/Rx/DC Orders Clinical Impression: Cellulitis of knee, right, Encounter for incision and drainage procedure, History of intravenous drug abuse, Hx MRSA infection, Infected finger Instructions: ED Cellulitis Prescriptions: New clindamycin HCl [Cleocin HCl] 300 mg capsule 300 mg PO Q6H 10 Days Qty: 40 0RF No Action trazodone 50 mg tablet 50 mg PO QHS Patient Comments: PT STATES IS OUT OF THIS MED BUT HAS DR SOSA FOR REFILL prazosin 1 mg capsule 1 mg PO QHS Patient Comments: PT STATES IS OUT OF THIS MED BUT HAS DR SOSA FOR REFILL omeprazole 40 mg capsule,delayed release(DR/EC) 40 mg PO DAILY hydroxyzine pamoate 50 mg capsule 50 mg PO DAILY Primary Care Provider: Care Physician,No Primary Referrals: Howard Arnold DO [Med Staff - Active Staff] - 3-5 Days Care Physician,No Primary [Primary Care Provider] - Activity Restrictions/Additional Instructions: Motrin and Tylenol for pain. Take antibiotic clindamycin 1 pill 4 times a day. Take it till its gone. You will take it for 10 days. Return if your thumb or your knee is looking worse. The antibiotic should start making it better. Follow-up with the orthopedic physician if not totally getting better. If your knee would get a lot more swollen and hurt a lot more it could get in the knee joint return to the emergency department. If it is getting better right now it is just a superficial infection is not in the joint. Print Language: Kiswahili Disposition Disposition: Home, Self Care
[2024-11-24] MEDS: Lidocaine 1% (20 ml mdv) 20 ML Vial 10 ML INFILT (14:04)
--- NOTE | 2024-11-24 14:14 | RAD_ITS ---
PROCEDURE: FINGER(S) MIN 2 VIEWS 11/24/2024 REASON FOR EXAM: LEFT THUMB X-RAY. INFECTED ?? FOREIGN BODY TECHNIQUE: Three views of the 1st phalanx of the left hand COMPARISON: None RAD/Finger(s) Min 2 Views IMPRESSION: Mild soft tissue edema about the 1st phalanx without radiographic foreign body. No acute osseous fracture or dislocations. Reading Location: [id number]
[2024-11-24] MEDS: Ampicillin/Sulbactam 3 GM in 0.9% Normal Saline (100mL MB+) 100 ML IV (14:24)
[2024-11-24 14:25] LABS: Absolute Lymphocyte Count 2.18 X10^3/uL (0.83-4.51); Absolute Neutrophil Count 7.4 X10^3/uL (2.0-7.7); Basophil# 0.08 X10^3/uL; Basophil% 0.7 % (0-1); Eosinophil# 0.53 X10^3/uL; Eosinophils% 4.5 % (0-5); Hematocrit 38.4 % (40-54); Lymphocyte # 2.18 X10^3/ul (0.83-4.51); Lymphocyte % 18.6 % (19-41); Mean Corp Hgb Conc 36.5 g/dL (32-36); Mean Corpuscular Volume 87.7 fL (80-94); Mean Platelet Vol. 9.1 fl (6.2-12.0); Monocyte# 1.54 X10^3/uL; Monocyte% 13.1 % (0-10); NRBC Flagged by Analyzer 0 % (0-5); Neutrophil # 7.36 X10^3/uL (2.7-7.7); Neutrophil % 62.6 % (47-70); POSITIVE DIFFERENTIAL YES; Platelet Count 344 K/mm3 (150-450); RBC Distribution Width CV 13.3 % (11.6-14.6); RBC Distribution Width SD 43.2 fl (35.1-43.9); Red Blood Count 4.38 M/mm3 (4.6-6.2); White Blood Count 11.8 K/mm3 (4.4-11.0)
[2024-11-24 14:28] LABS: Differential Indicated SCAN CRITERIA MET
[2024-11-24 14:30] LABS: Erythrocyte Sedimentation Rate 13 mm/hr (0-20)
[2024-11-24 14:50] LABS: Anion Gap 12 (5-15); BUN 15 mg/dL (4-19); Calcium,Total 9.3 mg/dL (7.6-11.0); Carbon Dioxide 22.8 mmol/L (21.0-32.0); Chloride 101 mmol/L (98-108); Creatinine, Serum 0.87 mg/dL (0.70-1.20); EST Glomerular Filtration Rate 121 (>60); Estimated Creatinine Clearance 140.21 ml/min (50-250); Glucose 100 mg/dL (70-99); Potassium 3.6 mmol/L (3.3-5.1); Sodium Level 136 mmol/L (133-145)
[2024-11-24 15:48] VITALS: BP 157/70; PULSE 84; RESP 16; TEMP 36.8; O2SAT 99
[2024-11-24 16:36] LABS: Platelet Estimate A (ADEQ); Red Cell Morphology NORM C+C NORMAL (NORM C&C)
[2024-11-24 16:47] VITALS: BP 144/71; PULSE 81; RESP 18; TEMP 36.7; O2SAT 96
== END 2024-11-24 16:48 | disposition home or self-care (01) ==
PROVIDERS: Emergency Provider Emergency Medicine; Referring Provider Emergency Medicine; Visit Provider Emergency Medicine
DX: L03.115 Cellulitis of right lower limb (principal); K21.9 Gastro-esophageal reflux disease without esophagitis; Z79.899 Other long term (current) drug therapy; F17.210 Nicotine dependence, cigarettes, uncomplicated; Z86.14 Personal history of Methicillin resistant Staphylococcus aureus infection; Z87.898 Personal history of other specified conditions
CPT/HCPCS: 10060; 73140; 80048; 85025; 85652; 87040; 96365; 99284; A4216; J0295